=== PATIENT | male | born 1970 | race Caucasian/White ===

== ENCOUNTER 2017-12-16 11:09 | Emergency (ER) | payer OTHER ==
[2017-12-16] MEDS: LIDOCAINE/MYLANTA 40 ML BTL PO (12:08)
== END 2017-12-16 12:55 | disposition home or self-care (01) ==
LOC: FTE 11:09
DX: R09.89 Other specified symptoms and signs involving the circulatory and respiratory systems (principal)
CPT/HCPCS: 99282; Z7502

== ENCOUNTER 2018-06-23 17:25 | Emergency (ER) | payer OTHER | END 2018-06-23 19:50 | disposition home or self-care (01) | LOC: FTE 17:25 | DX: J32.0 Chronic maxillary sinusitis (principal) | CPT/HCPCS: 70450; 99284-25 ==

== ENCOUNTER 2018-12-30 09:20 | Emergency (ER) | payer OTHER | END 2018-12-30 10:55 | disposition home or self-care (01) | LOC: FTE 09:20 | DX: H11.32 Conjunctival hemorrhage, left eye (principal) | CPT/HCPCS: 99282; Z7502 ==